=== PATIENT | male | born 1990 | race Caucasian/White ===

== ENCOUNTER 2020-03-24 08:08 | Emergency (ER) | payer OTHER ==
[~2020-03-24] VITALS: Ht 167.6 cm; Wt 79.5 kg
[2020-03-24 08:17] VITALS: BP 116/63
== END 2020-03-24 09:00 | disposition home or self-care (01) ==
LOC: EMS 08:18
DX: Z03.818 Encounter for observation for suspected exposure to other biological agents ruled out (principal)
CPT/HCPCS: 99283; U0003